=== PATIENT | male | born 1985 | race Caucasian/White ===

== ENCOUNTER 2021-03-09 13:41 | Emergency (ER) | payer OTHER ==
[~2021-03-09] VITALS: Ht 188 cm; Wt 117.9 kg
[2021-03-09] MEDS ORDERED: ZOFRAN ODT4 MG PO (15:05)
[2021-03-09] MEDS ORDERED: IBUPROFEN 800800 M1 PO (15:05)
[2021-03-09 15:11] VITALS: BP 121/84
== END 2021-03-09 15:11 | disposition home or self-care (01) ==
LOC: M.ERS 13:41
DX: U07.1 COVID-19 (principal); Z90.49 Acquired absence of other specified parts of digestive tract